=== PATIENT | female | born 1980 | race Caucasian/White ===

== ENCOUNTER 2019-02-01 19:42 | Observation (INO) | payer BC ==
[2019-02-01] MEDS ORDERED: Sodium Chloride 0.9% 10 ML Syringe FLUSH PRN (20:06)
[2019-02-01] MEDS ORDERED: Sodium Chloride 0.9% 1,000 ML IV ONE (20:06)
[2019-02-01] MEDS ORDERED: Sodium Chloride 0.9% 2.5 ML Syringe FLUSH PRN (20:06)
[2019-02-01] MEDS ORDERED: Aspirin 325 MG Tab PO ONE (20:06)
--- NOTE | 2019-02-01 20:10 | EDM.PDOC ---
ED HPI GENERAL MEDICAL PROBLEM - General Chief Complaint: Cardiovascular Problem Stated Complaint: LOST VISION Time Seen by Provider: 02/01/19 19:55 - History of Present Illness INITIAL COMMENTS - FREE TEXT/NARRATIVE: HISTORY AND PHYSICAL: History of present illness: The patient is a 38-year-old female with a history of a pulmonary embolism in 2004 when she was and also had a PICC line in place, which they thought was the trigger for the PE, and who follows with Dr. Abebe in our clinic for checkups and has no other significant cardiac or logic pulmonary history other than migraine headaches and presents with an episode of visual changes mid thoracic pain and palpitations. The patient says that she had a normal day yesterday and today with the exception that she did take a dose of her Vyvanse, which she doesn't take every day, and drink her usual one cup of tea but did add an extra cup of iced coffee. Patient said she had no chest pain shortness of breath abdominal pain vomiting fevers or chills earlier and then was driving her car this evening when she says that she got "kaleidoscope peripheral vision", which she defines as seeing prisms and sections of light bilaterally in a lytton-like fashion around her vision with central clearing that started while she was in the car. She had no headache nausea vomiting lightheadedness or palpitations at that time. She then said that after a minute or 2 she completely lost vision in her left eye which lasted about 20-30 seconds and then the kaleidoscope vision came back and lasted for 7 minutes and now all visual changes have resolved. She says that when the kaleidoscope vision came back the second time she had a sudden sharp pain between her shoulder blades in the midline which has persisted and is not radiating to her chest. She had no anterior chest pain no shortness of breath no dizziness or lightheadedness no headache no eye pain and no leg or arm weakness numbness or tingling with these events. She currently says that her vision has completely resolved and she just feels like her heart is going faster and is skipping beats. She said that after the mid back pain started the palpitations and rapid heart rate started and has persisted but is improved. The patient says that her typical aura from migraine is that she feels very tired she'll lay down to take a nap and then when she wakes up she has a migraine headache. These visual changes are not typical of her migraines. She currently does not have a headache. The patient says she has been eating and drinking normally she has no leg pain or swelling and had a partial hysterectomy and denies . Currently in the ED her only complaint is of the mid thoracic pain and the palpitations. On the monitor her heart rate is 106 and she is having PVCs intermittently. She has no history of thyroid issues. The patient says that the pain between her shoulder blades does seem to be a little bit more on the left side but does not come around to her left chest wall and she describes it as a deep stabbing pain that is not made worse with movements or deep breaths. She rates it as a 6/10. When I ask her how she would treat this at home she said she would just rest put a heating pad on it and maybe take some over-the- counter meds. Please note that the patient says that all of these symptoms are not typical of a migraine aura or equivalent and the patient does not currently have a headache or eye pain. Review of systems: As per history of present illness and below otherwise all systems reviewed and negative. Past medical history: As per history of present illness and as reviewed below otherwise noncontributory. Surgical history: As per history of present illness and as reviewed below otherwise noncontributory. Social history: No reported history of drug or alcohol abuse. Family history: As per history of present illness and as reviewed below otherwise noncontributory. Physical exam: General: Well-developed well-nourished female who is nontoxic and speaking clearly and easily in the ED. She ambulated in without assistance. Vital signs are noted by me as is the monitor findings as documented above as well as the blood pressure HEENT: Atraumatic, normocephalic, pupils reactive, EOMs are intact and during my visual evaluation she has no kaleidoscope vision or change in vision and her vision is grossly intact on my evaluation as is her peripheral vision, negative for conjunctival pallor or scleral icterus, mucous membranes moist, throat clear , neck supple, nontender, trachea midline. No thyromegaly cervical adenopathy or nuchal rigidity Lungs: Clear to auscultation, breath sounds equal bilaterally, chest nontender. Heart: S1S2, slightly tachycardic rate with occasional ectopic beats appreciated but no murmurs negative for clicks, rubs, or JVD. Abdomen: Soft, nondistended, nontender. Negative for masses or hepatosplenomegaly. Negative for costovertebral tenderness. Pelvis: Stable nontender. Genitourinary: Deferred. Rectal: Deferred. Extremities: Atraumatic, negative for cords or calf pain. Neurovascular unremarkable. No pedal edema or leg asymmetry Neuro: Awake, alert, oriented. Cranial nerves II through XII unremarkable. Cerebellum unremarkable. Motor and sensory unremarkable throughout. Exam nonfocal. Back: There are no midline step-offs tenderness defects of the thoracic or lumbar spine and on palpation of the soft tissues and musculature of the thoracic region and shoulder girdle I cannot elicit the tenderness nor other any soft tissue palpable abnormalities Diagnostics: EKG CT scan of the head chest x-ray CBC CMP INR TSH troponin UA with reflex ESR Therapeutics: IV O2 monitor aspirin Toradol IV fluids 2018: Case was discussed with our herbicide sprayer Dr. Estevez. I explained to him the patient's events prior to coming to the ED and the complete resolution of those symptoms. He says that he does not seem to indicate a primary ophthalmologic cause and there is no need to emergently evaluate her from a vision standpoint or an ophthalmologic standpoint and that I should pursue cardiac and neuro causes of this. With some IV fluids a heart rate has now normalized to the 80s and blood pressure has also improved. 2108: All testing results were discussed with the patient and at bedside as well as the neurologist on-call at [facility] in [place], Dr. Mallory. He does not feel that this patient needs to be transferred nor be seen emergently by a neurologist but that she does need an MRI/MRA of the head and neck as well as an echocardiogram and an aspirin. He says that he is available to assist the hospitalist here with any issues or complications and that they can transfer tomorrow if anything changes or evolves. When I went in to discuss these results with the patient she seemed very tearful and her heart rate goes up when she starts acting anxious and upset. The patient says that she has been having a lot of "weird things happen to her" and the doctors are not believing her. I did not probe into this as we have a care plan involved and in place. She is comfortable with staying here for this workup and she was offered transferred to [facility] which she declines. Transfer to [facility] in [place] is not capable today because they are full to capacity. The neurologist there does not feel that she mandates transfer and I have expressed that to the patient and at bedside and they're comfortable with staying here. 2136: The case was discussed with Dr. Parker our hospitalist who accepts the patient and is aware of the workup that the neurologist has recommended. He accepts her to a telemetry observation admission Impression: Episode of visual changes resolved, palpitations and PVCs, rule out TIA Definitive disposition and diagnosis as appropriate pending reevaluation and review of above. Chest Pain Score (Numeric/FACES): 4 - Related Data Allergies Allergy/AdvReac Type Severity Reaction Status Date / Time animal dander Allergy Shortness Verified 02/01/19 19:53 of Breath promethazine Allergy Anxiety Verified 02/01/19 19:53 triamcinolone [From Kenalog] Allergy Other Verified 02/01/19 19:53 dust Allergy Shortness Uncoded 02/01/19 19:53 of Breath Home Meds: Home Meds EPINEPHrine [Epipen] 1 injection SUBCUT ASDIRECTED PRN 09/20/18 [History] Lisdexamfetamine Dimesylate [Vyvanse] 40 mg PO ASDIRECTED 02/01/19 [History] Past Medical History HEENT History: Reports: None Respiratory History: Reports: PE Other Respiratory History: PE during in 2004 Gastrointestinal History: Reports: Celiac Disease Genitourinary History: Reports: None 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 History: Reports: Endometriosis, Polycystic Ovaries, Musculoskeletal History: Reports: Neck Pain, Chronic Neurological History: Reports: Migraines Psychiatric History: Reports: ADHD Hematologic History: Reports: None Dermatologic History: Reports: Eczema - Infectious Disease History Infectious Disease History: Reports: Chicken Pox - Past Surgical History Head Surgeries/Procedures: Reports: None HEENT Surgical History: Reports: Adenoidectomy, Tonsillectomy GI Surgical History: Reports: Appendectomy Female Surgical History: Reports: Hysterectomy, Tubal Ligation Other Female Surgeries/Procedures: laparoscopy for endometriosis in 1999 Social & Family History - Family History Family Medical History: Noncontributory - Tobacco Use Smoking Status *Q: Never Smoker - Caffeine Use Caffeine Use: Reports: None - Recreational Drug Use Recreational Drug Use: No ED ROS GENERAL - Review of Systems Review Of Systems: ROS reveals no pertinent complaints other than HPI. ED EXAM, GENERAL - Physical Exam Exam: See Below (See dictation) Course - Vital Signs Last Recorded V/S: Last Vital Signs Temp 36.7 C 02/01/19 19:49 Pulse 88 02/01/19 20:59 Resp 18 02/01/19 20:59 BP 150/96 H 02/01/19 20:59 Pulse Ox 99 02/01/19 20:59 - Orders/Labs/Meds Orders: Active Orders 24 hr Category Date Time Status Cardiac Monitoring [RC] . DIRECTED Care 02/01/19 20:05 Active Communication Order [RC] STAT Care 02/01/19 20:06 Active Oxygen Therapy, ED [RC] ASDIRECTED Care 02/01/19 20:05 Active Pulse Oximetry [RC] ASDIRECTED Care 02/01/19 20:05 Active Sodium Chloride 0.9% [Saline Flush] Med 02/01/19 20:06 Active 10 ml FLUSH ASDIRECTED PRN Sodium Chloride 0.9% [Saline Flush] Med 02/01/19 20:06 Active 2.5 ml FLUSH ASDIRECTED PRN Saline Lock Insert [OM.PC] Stat Oth 02/01/19 20:05 Ordered Medication Orders Sodium Chloride (Saline Flush) 10 ml FLUSH ASDIRECTED PRN PRN Reason: Keep Vein Open Sodium Chloride (Saline Flush) 2.5 ml FLUSH ASDIRECTED PRN PRN Reason: Keep Vein Open Labs: Laboratory Tests 02/01/19 02/01/19 02/01/19 Range/Units 20:15 20:15 20:15 WBC 9.97 (4.0-11.0) K/uL RBC 5.13 (4.30-5.90) M/uL Hgb 15.0 (12.0-16.0) g/dL Hct 42.2 (36.0-46.0) % MCV 82.3 (80.0-98.0) fL MCH 29.2 (27.0-32.0) pg MCHC 35.5 (31.0-37.0) g/dL RDW Std Deviation 39.6 (28.0-62.0) fl RDW Coeff of Gifty 13 (11.0-15.0) % Plt Count 247 (150-400) K/uL MPV 10.40 (7.40-12.00) fL Neut % (Auto) 58.6 (48.0-80.0) % Lymph % (Auto) 32.2 (16.0-40.0) % [place] % (Auto) 6.4 (0.0-15.0) % Eos % (Auto) 2.6 (0.0-7.0) % Baso % (Auto) 0.2 (0.0-1.5) % Neut # (Auto) 5.8 H (1.4-5.7) K/uL Lymph # (Auto) 3.2 H (0.6-2.4) K/uL [place] # (Auto) 0.6 (0.0-0.8) K/uL Eos # (Auto) 0.3 (0.0-0.7) K/uL Baso # (Auto) 0.0 (0.0-0.1) K/uL Nucleated RBC % 0.0 /100WBC Nucleated RBCs # 0 K/uL ESR (0-19) mm/hr INR 0.98 D-Dimer, Quantitative 0.38 (0.0-0.50) mg/L FEU Sodium 140 (136-145) mmol/L Potassium 3.8 (3.5-5.1) mmol/L Chloride 105 (98-107) mmol/L Carbon Dioxide 22.6 (21.0-32.0) mmol/L BUN 12 (7.0-18.0) mg/dL Creatinine 1.1 H (0.6-1.0) mg/dL Est Cr Clr Drug Dosing 66.11 mL/min Estimated GFR (MDRD) 55.0 ml/min Glucose 100 (74-106) mg/dL Calcium 9.2 (8.5-10.1) mg/dL Total Bilirubin 0.9 (0.2-1.0) mg/dL AST 22 (15-37) IU/L ALT 19 (14-63) IU/L Alkaline Phosphatase 84 (46-116) U/L Troponin I < 0.050 (0.000-0.056) ng/mL C-Reactive Protein 0.80 (0.00-0.90) mg/dL Total Protein 8.2 (6.4-8.2) g/dL Albumin 4.1 (3.4-5.0) g/dL Globulin 4.1 H (2.6-4.0) g/dL Albumin/Globulin Ratio 1.0 (0.9-1.6) TSH 3rd Generation 4.82 H (0.36-3.74) uIU/mL Urine Color Urine Appearance Urine pH (5.0-8.0) Ur Specific [place] (1.001-1.035) Urine Protein (NEGATIVE) mg/dL Urine Glucose (UA) (NEGATIVE) mg/dL Urine Ketones (NEGATIVE) mg/dL Urine Occult Blood (NEGATIVE) Urine Nitrite (NEGATIVE) Urine Bilirubin (NEGATIVE) Urine Urobilinogen (<2.0) EU/dL Ur Leukocyte Esterase (NEGATIVE) Urine RBC (0-2/HPF) Urine WBC (0-5/HPF) Ur Squamous Epith Cells Urine Bacteria (NEGATIVE) Urine Mucus (NONE-MOD) 02/01/19 02/01/19 Range/Units 20:15 20:30 WBC (4.0-11.0) K/uL RBC (4.30-5.90) M/uL Hgb (12.0-16.0) g/dL Hct (36.0-46.0) % MCV (80.0-98.0) fL MCH (27.0-32.0) pg MCHC (31.0-37.0) g/dL RDW Std Deviation (28.0-62.0) fl RDW Coeff of Gifty (11.0-15.0) % Plt Count (150-400) K/uL MPV (7.40-12.00) fL Neut % (Auto) (48.0-80.0) % Lymph % (Auto) (16.0-40.0) % [place] % (Auto) (0.0-15.0) % Eos % (Auto) (0.0-7.0) % Baso % (Auto) (0.0-1.5) % Neut # (Auto) (1.4-5.7) K/uL Lymph # (Auto) (0.6-2.4) K/uL [place] # (Auto) (0.0-0.8) K/uL Eos # (Auto) (0.0-0.7) K/uL Baso # (Auto) (0.0-0.1) K/uL Nucleated RBC % /100WBC Nucleated RBCs # K/uL ESR 13 (0-19) mm/hr INR D-Dimer, Quantitative (0.0-0.50) mg/L FEU Sodium (136-145) mmol/L Potassium (3.5-5.1) mmol/L Chloride (98-107) mmol/L Carbon Dioxide (21.0-32.0) mmol/L BUN (7.0-18.0) mg/dL Creatinine (0.6-1.0) mg/dL Est Cr Clr Drug Dosing mL/min Estimated GFR (MDRD) ml/min Glucose (74-106) mg/dL Calcium (8.5-10.1) mg/dL Total Bilirubin (0.2-1.0) mg/dL AST (15-37) IU/L ALT (14-63) IU/L Alkaline Phosphatase (46-116) U/L Troponin I (0.000-0.056) ng/mL C-Reactive Protein (0.00-0.90) mg/dL Total Protein (6.4-8.2) g/dL Albumin (3.4-5.0) g/dL Globulin (2.6-4.0) g/dL Albumin/Globulin Ratio (0.9-1.6) TSH 3rd Generation (0.36-3.74) uIU/mL Urine Color YELLOW Urine Appearance CLEAR Urine pH 6.0 (5.0-8.0) Ur Specific [place] <= 1.005 (1.001-1.035) Urine Protein NEGATIVE (NEGATIVE) mg/dL Urine Glucose (UA) NEGATIVE (NEGATIVE) mg/dL Urine Ketones NEGATIVE (NEGATIVE) mg/dL Urine Occult Blood TRACE-INTACT H (NEGATIVE) Urine Nitrite NEGATIVE (NEGATIVE) Urine Bilirubin NEGATIVE (NEGATIVE) Urine Urobilinogen 0.2 (<2.0) EU/dL Ur Leukocyte Esterase NEGATIVE (NEGATIVE) Urine RBC NONE SEEN (0-2/HPF) Urine WBC 0-1 (0-5/HPF) Ur Squamous Epith Cells FEW Urine Bacteria 1+ H (NEGATIVE) Urine Mucus LIGHT (NONE-MOD) Meds: Medications Generic Name Dose Route Start Last Admin Trade Name Freq PRN Reason Stop Dose Admin Sodium Chloride 10 ml 02/01/19 20:06 Saline Flush FLUSH ASDIRECTED PRN Keep Vein Open Sodium Chloride 2.5 ml 02/01/19 20:06 Saline Flush FLUSH ASDIRECTED PRN Keep Vein Open Discontinued Medications Generic Name Dose Route Start Last Admin Trade Name Antwanq PRN Reason Stop Dose Admin Aspirin 325 mg 02/01/19 20:06 02/01/19 20:30 Aspirin PO 02/01/19 20:07 325 mg ONETIME ONE Administration Sodium Chloride 1,000 mls @ 999 mls/hr 02/01/19 20:06 02/01/19 20:30 Normal Saline IV 02/01/19 21:06 999 mls/hr STAT ONE Administration Ketorolac Tromethamine 30 mg 02/01/19 20:16 02/01/19 20:30 Toradol IVPUSH 02/01/19 20:17 30 mg ONETIME ONE Administration Departure - Departure Time of Disposition: 21:49 Disposition: Refer to Observation Reason for Transfer *Q: Primary PCI Indicated Condition: Good Clinical Impression: Palpitations, Visual changes, TIA (transient ischemic attack) Referrals: PCP,None [Primary Care Provider] - Forms: ED Department Discharge - My Orders Last 24 Hours: My Active Orders 02/01/19 20:05 Cardiac Monitoring [RC] . DIRECTED Oxygen Therapy, ED [RC] ASDIRECTED Pulse Oximetry [RC] ASDIRECTED Saline Lock Insert [OM.PC] Stat 02/01/19 20:06 Communication Order [RC] STAT Sodium Chloride 0.9% [Saline Flush] 10 ml FLUSH ASDIRECTED PRN Sodium Chloride 0.9% [Saline Flush] 2.5 ml FLUSH ASDIRECTED PRN - Assessment/Plan Last 24 Hours: My Active Orders 02/01/19 20:05 Cardiac Monitoring [RC] . DIRECTED Oxygen Therapy, ED [RC] ASDIRECTED Pulse Oximetry [RC] ASDIRECTED Saline Lock Insert [OM.PC] Stat 02/01/19 20:06 Communication Order [RC] STAT Sodium Chloride 0.9% [Saline Flush] 10 ml FLUSH ASDIRECTED PRN Sodium Chloride 0.9% [Saline Flush] 2.5 ml FLUSH ASDIRECTED PRN
[2019-02-01] MEDS ORDERED: Ketorolac 30 MG/ML SDV IVPUSH ONE (20:16)
--- NOTE | 2019-02-01 20:30 | CR ---
INDICATION: Chest pain, blurry vision. Shortness of breath. TECHNIQUE: Chest radiograph 1 view COMPARISON: 09/23/2018. FINDINGS: Cardiovascular and mediastinum: The heart silhouette is normal in size and morphology. The mediastinum is normal in appearance. Lungs and pleural spaces: Both lungs are unremarkable in appearance. No sign of pleural effusion seen. No pneumothorax is identified. Bones and soft tissues: No significant findings. IMPRESSION: 1. No acute cardiopulmonary disease is seen. Dictated by Rashi Lyman MD @ 02/01/2019 8:29:10 PM Dictated by: Rashi Lyman MD @ 02/01/2019 20:29:16 (Electronically Signed)
--- NOTE | 2019-02-01 20:43 | CT ---
INDICATION: Pain, temporary loss of vision. TECHNIQUE: CT head without contrast. COMPARISON: None. FINDINGS: CSF spaces: Within normal limits for age. Brain parenchyma: The thayer-white differentiation is normal. No sign of mass, hemorrhage, or midline shift. Skull base and calvarium: The visualized paranasal sinuses and mastoid air cells demonstrate no acute or significant findings. The visualized orbits are grossly unremarkable. No skull fractures. IMPRESSION: Unremarkable noncontrast head CT. Please note that all CT scans at this facility use dose modulation, iterative reconstruction, and/or weight-based dosing when appropriate to reduce radiation dose to as low as reasonably achievable. Dictated by Toño Orozco MD @ Feb 01 2019 8:37PM Signed by Dr. Toño Orozco @ Feb 01 2019 8:41PM
[2019-02-01 20:53] LABS: CHLORIDE,CL 105 mmol/L (98-107); SODIUM,NA 140 mmol/L (136-145)
[2019-02-01] MEDS ORDERED: Acetaminophen 325 MG Tab PO PRN (23:08)
[2019-02-01] MEDS ORDERED: oxyCODONE 5 MG Tab PO PRN (23:09)
[2019-02-02 05:55] LABS: CHLORIDE,CL 108 mmol/L (98-107); SODIUM,NA 141 mmol/L (136-145)
--- NOTE | 2019-02-02 06:48 | PCM.HP ---
H&P History of Present Illness - General Date of Service: 02/02/19 Admit Problem/Dx: Admission Diagnosis/Problem Admission Diagnosis/Problem TIA, Transient ischemic attack Source of Information: Patient History Limitations: Reports: No Limitations - History of Present Illness Initial Comments - Free Text/Narative: The patient is an otherwise healthy 38-year-old lady who was admitted to the emergency department secondary to concern over visual issues. The patient reported that she was having problems with her eyes in which had presented as kind of a "kaleidoscope" type of shimmering triangles in her peripheral vision. The patient also had some blurring of her central vision and at one point completely lost the vision in her left eye which lasted approximately 20-30 seconds. The patient also says that she has been having increasing migraine headaches that seem to occur on a regular basis. She is also had 6 months worth of pain between her shoulder blades along with some numb areas to include her perioral region as well as right lateral thigh. The patient also had concerns with palpitations and midthoracic back pain. The patient has been taking Vyvanse only for ADHD. The emergency room physician had discussed the case with neurologist at [place] who had recommended 2-D echocardiogram for cardiac issues as well as MRI/MRA of the brain to better characterize the parenchyma. Other than the decreased feeling around her mouth and her right lateral thigh all of her symptoms have resolved. Her vision is improved to normal. The patient did not have any associated symptoms such as weakness although she had complained of some dizziness as well. Onset of Symptoms: Reports: Sudden Duration of Symptoms: Reports: Hour(s): Location: Reports: Generalized. Denies: Radiates to Quality: Reports: Ache, Dull Improves with: Reports: Rest Worsens with: Reports: None Associated Symptoms: Reports: No Other Symptoms Chest Pain Score (Numeric/FACES): 2 - Related Data Allergies/Adverse Reactions: Allergies Allergy/AdvReac Type Severity Reaction Status Date / Time animal dander Allergy Shortness Verified 02/01/19 19:53 of Breath promethazine Allergy Anxiety Verified 02/01/19 19:53 triamcinolone [From Kenalog] Allergy Other Verified 02/01/19 19:53 dust Allergy Shortness Uncoded 02/01/19 19:53 of Breath Home Medications: Home Meds EPINEPHrine [Epipen] 1 injection SUBCUT ASDIRECTED PRN 09/20/18 [History] Lisdexamfetamine Dimesylate [Vyvanse] 40 mg PO ASDIRECTED 02/01/19 [History] Past Medical History HEENT History: Reports: None Respiratory History: Reports: PE Other Respiratory History: PE during in 2004 Gastrointestinal History: Reports: Celiac Disease Genitourinary History: Reports: None [employer] History: Reports: Endometriosis, Polycystic Ovaries, Musculoskeletal History: Reports: Neck Pain, Chronic Neurological History: Reports: Migraines Psychiatric History: Reports: ADHD Endocrine/Metabolic History: Reports: None Hematologic History: Reports: None Immunologic History: Reports: None Dermatologic History: Reports: Eczema - Infectious Disease History Infectious Disease History: Reports: Chicken Pox - Past Surgical History Head Surgeries/Procedures: Reports: None HEENT Surgical History: Reports: Adenoidectomy, Tonsillectomy GI Surgical History: Reports: Appendectomy Female Surgical History: Reports: Hysterectomy, Tubal Ligation Other Female Surgeries/Procedures: laparoscopy for endometriosis in 1999 Social & Family History - Family History Family Medical History: Noncontributory - Tobacco Use Smoking Status *Q: Never Smoker Second Hand Smoke Exposure: No - Caffeine Use Caffeine Use: Reports: Other Caffeine Use Comment: occasionally - Recreational Drug Use Recreational Drug Use: No - Living Situation & Occupation Living situation: Reports: , with Spouse Occupation: Employed H&P Review of Systems - Review of Systems: Review Of Systems: See Below General: Reports: Fatigue HEENT: Denies: Eye Pain, Hearing Changes, Rhinitis, Sinus Congestion Pulmonary: Reports: Pleuritic Chest Pain Cardiovascular: Reports: No Symptoms Gastrointestinal: Reports: No Symptoms Genitourinary: Reports: No Symptoms Musculoskeletal: Reports: No Symptoms Skin: Reports: No Symptoms Psychiatric: Reports: No Symptoms Neurological: Reports: Dizziness, Paresthesia Hematologic/Lymphatic: Reports: No Symptoms Immunologic: Reports: No Symptoms Exam - Exam Exam: See Below - Vital Signs Vital Signs: Last Vital Signs Temp 36.6 C 02/02/19 04:00 Pulse 62 02/02/19 04:00 Resp 16 02/02/19 04:00 BP 130/77 02/02/19 04:00 Pulse Ox 96 02/02/19 04:00 Weight: 87.997 kg - Exam Quality Assessment: No: Supplemental Oxygen General: Alert, Oriented, Cooperative HEENT: Conjunctiva Clear, EACs Clear, EOMI, Hearing Intact, Mucosa Moist & [place] , Nares Patent, PERRLA Neck: Supple, Trachea Midline. No: JVD Lungs: Clear to Auscultation, Normal Respiratory Effort Cardiovascular: Regular Rate, Regular Rhythm GI/Abdominal Exam: Normal Bowel Sounds, Soft, Non-Tender, No Distention (Female) Exam: Deferred Rectal (Female) Exam: Deferred Back Exam: Normal Inspection, Full Range of Motion Extremities: Normal Inspection, Normal Range of Motion, No Pedal Edema Skin: Warm, Dry, Intact Neurological: Reflexes Equal Bilateral, Strength Equal Bilateral, Normal Gait, Normal Speech Neuro Extensive - Mental Status: Alert, Oriented x3, Memory Intact Neuro Extensive - Motor, Sensory, Reflexes: CN II-XII Intact Psychiatric: Alert, Normal Affect, Normal Mood - Patient Data Lab Results Last 24 hrs: Laboratory Results - last 24 hr 02/01/19 02/01/19 02/01/19 Range/Units 20:15 20:15 20:15 WBC 9.97 (4.0-11.0) K/uL RBC 5.13 (4.30-5.90) M/uL Hgb 15.0 (12.0-16.0) g/dL Hct 42.2 (36.0-46.0) % MCV 82.3 (80.0-98.0) fL MCH 29.2 (27.0-32.0) pg MCHC 35.5 (31.0-37.0) g/dL RDW Std Deviation 39.6 (28.0-62.0) fl RDW Coeff of Gifty 13 (11.0-15.0) % Plt Count 247 (150-400) K/uL MPV 10.40 (7.40-12.00) fL Neut % (Auto) 58.6 (48.0-80.0) % Lymph % (Auto) 32.2 (16.0-40.0) % [place] % (Auto) 6.4 (0.0-15.0) % Eos % (Auto) 2.6 (0.0-7.0) % Baso % (Auto) 0.2 (0.0-1.5) % Neut # (Auto) 5.8 H (1.4-5.7) K/uL Lymph # (Auto) 3.2 H (0.6-2.4) K/uL [place] # (Auto) 0.6 (0.0-0.8) K/uL Eos # (Auto) 0.3 (0.0-0.7) K/uL Baso # (Auto) 0.0 (0.0-0.1) K/uL Nucleated RBC % 0.0 /100WBC Nucleated RBCs # 0 K/uL ESR (0-19) mm/hr INR 0.98 D-Dimer, Quantitative 0.38 (0.0-0.50) mg/L FEU Sodium 140 (136-145) mmol/L Potassium 3.8 (3.5-5.1) mmol/L Chloride 105 (98-107) mmol/L Carbon Dioxide 22.6 (21.0-32.0) mmol/L BUN 12 (7.0-18.0) mg/dL Creatinine 1.1 H (0.6-1.0) mg/dL Est Cr Clr Drug Dosing 66.11 mL/min Estimated GFR (MDRD) 55.0 ml/min Glucose 100 (74-106) mg/dL Calcium 9.2 (8.5-10.1) mg/dL Magnesium (1.8-2.4) mg/dL Total Bilirubin 0.9 (0.2-1.0) mg/dL AST 22 (15-37) IU/L ALT 19 (14-63) IU/L Alkaline Phosphatase 84 (46-116) U/L Troponin I < 0.050 (0.000-0.056) ng/mL C-Reactive Protein 0.80 (0.00-0.90) mg/dL Total Protein 8.2 (6.4-8.2) g/dL Albumin 4.1 (3.4-5.0) g/dL Globulin 4.1 H (2.6-4.0) g/dL Albumin/Globulin Ratio 1.0 (0.9-1.6) TSH 3rd Generation 4.82 H (0.36-3.74) uIU/mL Urine Color Urine Appearance Urine pH (5.0-8.0) Ur Specific [place] (1.001-1.035) Urine Protein (NEGATIVE) mg/dL Urine Glucose (UA) (NEGATIVE) mg/dL Urine Ketones (NEGATIVE) mg/dL Urine Occult Blood (NEGATIVE) Urine Nitrite (NEGATIVE) Urine Bilirubin (NEGATIVE) Urine Urobilinogen (<2.0) EU/dL Ur Leukocyte Esterase (NEGATIVE) Urine RBC (0-2/HPF) Urine WBC (0-5/HPF) Ur Squamous Epith Cells Urine Bacteria (NEGATIVE) Urine Mucus (NONE-MOD) 02/01/19 02/01/19 02/02/19 Range/Units 20:15 20:30 05:06 WBC 8.07 (4.0-11.0) K/uL RBC 4.51 (4.30-5.90) M/uL Hgb 13.0 (12.0-16.0) g/dL Hct 37.6 (36.0-46.0) % MCV 83.4 (80.0-98.0) fL MCH 28.8 (27.0-32.0) pg MCHC 34.6 (31.0-37.0) g/dL RDW Std Deviation 40.7 (28.0-62.0) fl RDW Coeff of Gifty 13 (11.0-15.0) % Plt Count 227 (150-400) K/uL MPV 9.90 (7.40-12.00) fL Neut % (Auto) 51.3 (48.0-80.0) % Lymph % (Auto) 36.4 (16.0-40.0) % [place] % (Auto) 6.4 (0.0-15.0) % Eos % (Auto) 5.7 (0.0-7.0) % Baso % (Auto) 0.2 (0.0-1.5) % Neut # (Auto) 4.1 (1.4-5.7) K/uL Lymph # (Auto) 2.9 H (0.6-2.4) K/uL [place] # (Auto) 0.5 (0.0-0.8) K/uL Eos # (Auto) 0.5 (0.0-0.7) K/uL Baso # (Auto) 0.0 (0.0-0.1) K/uL Nucleated RBC % 0.0 /100WBC Nucleated RBCs # 0 K/uL ESR 13 (0-19) mm/hr INR D-Dimer, Quantitative (0.0-0.50) mg/L FEU Sodium (136-145) mmol/L Potassium (3.5-5.1) mmol/L Chloride (98-107) mmol/L Carbon Dioxide (21.0-32.0) mmol/L BUN (7.0-18.0) mg/dL Creatinine (0.6-1.0) mg/dL Est Cr Clr Drug Dosing mL/min Estimated GFR (MDRD) ml/min Glucose (74-106) mg/dL Calcium (8.5-10.1) mg/dL Magnesium (1.8-2.4) mg/dL Total Bilirubin (0.2-1.0) mg/dL AST (15-37) IU/L ALT (14-63) IU/L Alkaline Phosphatase (46-116) U/L Troponin I (0.000-0.056) ng/mL C-Reactive Protein (0.00-0.90) mg/dL Total Protein (6.4-8.2) g/dL Albumin (3.4-5.0) g/dL Globulin (2.6-4.0) g/dL Albumin/Globulin Ratio (0.9-1.6) TSH 3rd Generation (0.36-3.74) uIU/mL Urine Color YELLOW Urine Appearance CLEAR Urine pH 6.0 (5.0-8.0) Ur Specific [place] <= 1.005 (1.001-1.035) Urine Protein NEGATIVE (NEGATIVE) mg/dL Urine Glucose (UA) NEGATIVE (NEGATIVE) mg/dL Urine Ketones NEGATIVE (NEGATIVE) mg/dL Urine Occult Blood TRACE-INTACT H (NEGATIVE) Urine Nitrite NEGATIVE (NEGATIVE) Urine Bilirubin NEGATIVE (NEGATIVE) Urine Urobilinogen 0.2 (<2.0) EU/dL Ur Leukocyte Esterase NEGATIVE (NEGATIVE) Urine RBC NONE SEEN (0-2/HPF) Urine WBC 0-1 (0-5/HPF) Ur Squamous Epith Cells FEW Urine Bacteria 1+ H (NEGATIVE) Urine Mucus LIGHT (NONE-MOD) 02/02/19 Range/Units 05:06 WBC (4.0-11.0) K/uL RBC (4.30-5.90) M/uL Hgb (12.0-16.0) g/dL Hct (36.0-46.0) % MCV (80.0-98.0) fL MCH (27.0-32.0) pg MCHC (31.0-37.0) g/dL RDW Std Deviation (28.0-62.0) fl RDW Coeff of Gifty (11.0-15.0) % Plt Count (150-400) K/uL MPV (7.40-12.00) fL Neut % (Auto) (48.0-80.0) % Lymph % (Auto) (16.0-40.0) % [place] % (Auto) (0.0-15.0) % Eos % (Auto) (0.0-7.0) % Baso % (Auto) (0.0-1.5) % Neut # (Auto) (1.4-5.7) K/uL Lymph # (Auto) (0.6-2.4) K/uL [place] # (Auto) (0.0-0.8) K/uL Eos # (Auto) (0.0-0.7) K/uL Baso # (Auto) (0.0-0.1) K/uL Nucleated RBC % /100WBC Nucleated RBCs # K/uL ESR (0-19) mm/hr INR D-Dimer, Quantitative (0.0-0.50) mg/L FEU Sodium 141 (136-145) mmol/L Potassium 3.6 (3.5-5.1) mmol/L Chloride 108 H (98-107) mmol/L Carbon Dioxide 22.7 (21.0-32.0) mmol/L BUN 10 (7.0-18.0) mg/dL Creatinine 1.0 (0.6-1.0) mg/dL Est Cr Clr Drug Dosing 72.72 mL/min Estimated GFR (MDRD) > 60.0 ml/min Glucose 90 (74-106) mg/dL Calcium 8.4 L (8.5-10.1) mg/dL Magnesium 2.2 (1.8-2.4) mg/dL Total Bilirubin (0.2-1.0) mg/dL AST (15-37) IU/L ALT (14-63) IU/L Alkaline Phosphatase (46-116) U/L Troponin I (0.000-0.056) ng/mL C-Reactive Protein (0.00-0.90) mg/dL Total Protein (6.4-8.2) g/dL Albumin (3.4-5.0) g/dL Globulin (2.6-4.0) g/dL Albumin/Globulin Ratio (0.9-1.6) TSH 3rd Generation (0.36-3.74) uIU/mL Urine Color Urine Appearance Urine pH (5.0-8.0) Ur Specific [place] (1.001-1.035) Urine Protein (NEGATIVE) mg/dL Urine Glucose (UA) (NEGATIVE) mg/dL Urine Ketones (NEGATIVE) mg/dL Urine Occult Blood (NEGATIVE) Urine Nitrite (NEGATIVE) Urine Bilirubin (NEGATIVE) Urine Urobilinogen (<2.0) EU/dL Ur Leukocyte Esterase (NEGATIVE) Urine RBC (0-2/HPF) Urine WBC (0-5/HPF) Ur Squamous Epith Cells Urine Bacteria (NEGATIVE) Urine Mucus (NONE-MOD) Result Diagrams: 02/02/19 05:06 02/02/19 05:06 - Problem List (1) Amaurosis fugax, both eyes SNOMED Code(s): 05699578 ICD Code: G45.3 - AMAUROSIS FUGAX Status: Acute Priority: High Current Visit: Yes (2) ADHD (attention deficit hyperactivity disorder) SNOMED Code(s): 605646687 ICD Code: F90.9 - ATTENTION-DEFICIT HYPERACTIVITY DISORDER, UNSPECIFIED TYPE Status: Chronic Priority: High Current Visit: Yes Qualifiers: Attention deficit-hyperactivity disorder type: predominantly inattentive Qualified Code(s): F90.0 - Attention-deficit hyperactivity disorder, predominantly inattentive type (3) Visual changes SNOMED Code(s): 410442929 ICD Code: H53.9 - UNSPECIFIED VISUAL DISTURBANCE Status: Acute Priority: High Current Visit: Yes (4) Pleuritic chest pain SNOMED Code(s): 8996055 ICD Code: R07.81 - PLEURODYNIA Status: Acute Priority: High Current Visit: Yes Problem List Initiated/Reviewed/Updated: Yes Orders Last 24hrs: Active Orders 24 hr Category Date Time Status Patient Status [ADT] Stat ADT 02/01/19 21:49 Active Communication Order [RC] STAT Care 02/01/19 20:06 Active Neuro Check [RC] BID Care 02/01/19 23:00 Active Oxygen Therapy, ED [RC] ASDIRECTED Care 02/01/19 20:05 Active Pulse Oximetry [RC] ASDIRECTED Care 02/01/19 20:05 Active Telemetry Monitoring [Cardiac Monitoring] [RC] Q8H Care 02/01/19 22:00 Active Regular Diet [DIET] Diet 02/02/19 Breakfast Active Brain w wo Cont [MR] Routine Exams 02/02/19 06:37 Ordered Echo 2D wo Cont [US] Routine Exams 02/02/19 07:00 Ordered MRA Head Without Contrast [Ang Head wo Cont] [MR] Exams 02/02/19 06:38 Ordered Routine Acetaminophen [Tylenol] Med 02/01/19 23:08 Active 650 mg PO Q6H PRN Sodium Chloride 0.9% [Saline Flush] Med 02/01/19 20:06 Active 10 ml FLUSH ASDIRECTED PRN Sodium Chloride 0.9% [Saline Flush] Med 02/01/19 20:06 Active 2.5 ml FLUSH ASDIRECTED PRN oxyCODONE Med 02/01/19 23:09 Active 5 mg PO Q4H PRN Saline Lock Insert [OM.PC] Stat Oth 02/01/19 20:05 Ordered Medication Orders Acetaminophen (Tylenol) 650 mg PO Q6H PRN PRN Reason: Mild Pain Oxycodone HCl (Oxycodone) 5 mg PO Q4H PRN PRN Reason: Moderate Pain Sodium Chloride (Saline Flush) 10 ml FLUSH ASDIRECTED PRN PRN Reason: Keep Vein Open Sodium Chloride (Saline Flush) 2.5 ml FLUSH ASDIRECTED PRN PRN Reason: Keep Vein Open Assessment/Plan Comment:: The patient is an otherwise healthy 38-year-old lady who was admitted late yesterday evening secondary to concerns for visual disturbance. Neurology and [place] had been consulted with regards to her symptomology and had recommended MRI/MRA of her brain along with a 2-D echocardiogram. The 2-D echocardiogram results are currently pending. The MRI/MRA obtained on day of discharge showed no acute intracranial findings a few small white matter FLAIR signal foci were identified which are considered to be nonspecific but may represent sequelae of previous migraines or early demyelination. She also had an unremarkable intracranial arterial circulation. The patient's symptoms had resolved. The patient's short hospital course has remained uneventful. Laboratory studies to include INR and d-dimer were unremarkable. Of note and likely incidental finding is that her TSH was very mildly elevated at 4.82. The patient has been tolerating her diet. She is recommended to continue with a heart healthy diet as tolerated. The patient is also to have activity as tolerated. She has been recommended to follow-up with the physician with regards to her 2-D echocardiogram as well as neurology. She has been hemodynamically stable and she is discharged from hospitalization with the recommendations listed above. This patient's history and physical will also serve as a discharge summary.
[2019-02-02] MEDS ORDERED: Lisdexamfetamine Dimesylate [Vyvanse] 40 MG PO SCH (07:00)
[2019-02-02] MEDS ORDERED: Gadobenate Dimeglumine 529 MG/ML 20 ML SDV IVPUSH STA (08:50)
--- NOTE | 2019-02-02 11:25 | MR ---
EXAMINATION: MRI of the brain with and without contrast, MRA head without contrast TECHNIQUE: Multiplanar and multisequence imaging of the brain without and following the administration of 13 mL of MultiHance. [id number] imaging obtained through the head with MIP reconstructions. HISTORY: TIA. FINDINGS: Cerebral hemispheres and the deep nuclei are without hemorrhage, mass, edema, enhancement or atrophy. There is no abnormal diffusion restriction. No extraaxial collections or hemorrhage. Ventricular system is of normal size and configuration without hydrocephalus. The brainstem and cerebellum are without hemorrhage, mass, edema, gliosis, enhancement or atrophy. Carotid basilar artery flow voids are intact. Trace fluid within the left mastoid air cells. No internal auditory canal or cerebellopontine angle masses or enhancement. The paranasal sinuses are clear. Globes, optic nerves, orbital apices, optic chiasm, optic tracts, and visual cortices are unremarkable. The pituitary and sella turcica are unremarkable. No meningeal enhancement. The craniocervical junction is unremarkable. No siderosis or evidence of vascular malformation. The calvarium is intact. MRA head: The distal internal carotid arteries are normal. The left vertebral artery is slightly dominant. The basilar system is normal. Anterior and posterior communicating arteries are normal. IMPRESSION: 1. No acute intracranial findings. 2. There are a few small white matter FLAIR signal foci identified, nonspecific, this could represent, however not limited to, early small vessel ischemic changes, sequela of previous migraines, or early demyelination. 3. Unremarkable intracranial arterial circulation.
== END 2019-02-02 13:45 | disposition home or self-care (01) ==
LOC: MW.ED 19:42 → MW.MS 21:49
PROVIDERS: ADMIT Internal Medicine; ATTEND Internal Medicine
DX: G45.3 Amaurosis fugax (principal); R07.81 Pleurodynia; I49.3 Ventricular premature depolarization; F90.0 Attention-deficit hyperactivity disorder, predominantly inattentive type; Z88.8 Allergy status to other drugs, medicaments and biological substances; Z86.711 Personal history of pulmonary embolism; Z91.09 Other allergy status, other than to drugs and biological substances; Z79.899 Other long term (current) drug therapy
CPT/HCPCS: 36415; 70450; 70450-26; 70544; 70544-26; 70553; 70553-26; 71045; 71045-26; 80048; 80053; 81001; 83735; 84443; 84484; 85025; 85379; 85610; 85652; 86140; 93005; 93306; 96361; 96374; 99284; 99285-25; A9270-GY; A9577; G0378; J1885; J7040

== ENCOUNTER 2020-08-29 22:07 | Emergency (ER) | payer BC ==
[2020-08-29] MEDS ORDERED: Ketorolac 15 MG/ML SDV IM ONE (22:44)
[2020-08-29] MEDS ORDERED: Methocarbamol 750 MG TAB PO STA (22:44)
--- NOTE | 2020-08-29 23:11 | CR ---
TECHNIQUE: Portable AP chest radiograph. INDICATION: Mid back pain. COMPARISON: 02/01/2019. FINDINGS: Lungs and pleural spaces clear. Normal cardiac and mediastinal contours. IMPRESSION: Negative chest radiograph. Dictated by Bryn Rowe MD @ 08/29/2020 11:11:08 PM Dictated by: Bryn Rowe MD @ 08/29/2020 23:11:12 (Electronically Signed)
[2020-08-29 23:49] LABS: CARBON DIOXIDE,CO2 23.6 mmol/L (21.0-32.0)
[2020-08-30] MEDS ORDERED: Potassium Chloride 10% 20 MEQ/15 ML Soln 15 ML UD Cup PO ONE (00:48)
[2020-08-30] MEDS ORDERED: Iopamidol 755 Mg/ML 100 ML Bottle IVPUSH STA (01:00)
--- NOTE | 2020-08-30 01:15 | CT ---
INDICATION: Elevated D-dimer, history of pulmonary embolus. TECHNIQUE: CT chest PE was acquired with 75 cc Isovue 370 intravenous contrast. COMPARISON: Chest CT 09/23/2018 FINDINGS: Heart and vasculature: Contrast opacification of the pulmonary arterial tree is adequate. No sign of pulmonary embolism. Thoracic aorta is normal in caliber. Trace pericardial fluid. Lungs and pleural: Trace bilateral pleural effusions. Bilateral ground-glass opacities of the upper lungs as well as a mosaic attenuation pattern of the lower lungs. Lymph nodes/mediastinum: No mediastinal, hilar, or axillary adenopathy. Chest wall: No masses. Upper abdomen: Normal. Bones: Unremarkable for age. IMPRESSION: 1. No evidence of pulmonary embolus. 2. Trace bilateral pleural effusions. 3. Ground-glass opacities, greatest at the left upper lobe suspicious for a viral pneumonia. Please note that all CT scans at this facility use dose modulation, iterative reconstruction, and/or weight-based dosing when appropriate to reduce radiation dose to as low as reasonably achievable. Dictated by Toño Orozco MD @ Aug 30 2020 1:02AM Signed by Dr. Toño Orozco @ Aug 30 2020 1:13AM
--- NOTE | 2020-08-30 01:28 | EDM.PDOC ---
ED HPI GENERAL MEDICAL PROBLEM - General Chief Complaint: General Stated Complaint: SICK Time Seen by Provider: 08/29/20 22:26 - History of Present Illness INITIAL COMMENTS - FREE TEXT/NARRATIVE: CHIEF COMPLAINT(S): Back pain HISTORY OF PRESENT ILLNESS: This is a 39-year-old woman with a past medical history of ADHD, muscle spasm, pleurisy, and prior history of provoked PE after who comes to the emergency department with a chief complaint of back pain. The patient states that for approximately 2 to 3 days now she has been experiencing back pain that starts in between her shoulders and radiates under her ribs anteriorly. She describes the pain as constant and 8 out of 10 and describes the pain as spasms. She states that the pain is worse tonight and it is worth with sitting back on her back. She denies any relieving symptoms and has not yet tried anything for the pain. She denies any fevers, chills, diaphoresis, nausea or vomiting. She denies any night sweats, weight loss, or known contact with Covid. She states that she does not have a history of nephrolithiasis and feels similar to the pleurisy she had in the past. She denies any dysuria, hematuria, vaginal bleeding or vaginal discharge. She denies any other symptoms. REVIEW OF SYSTEMS: Constitutional: Denies fever, chills. Eyes: Denies eye pain Ears, Nose, Mouth, & Throat: Denies earache Cardiovascular: Positive for chest wall pain. Denies any chest pain Respiratory: Denies shortness of breath Gastrointestinal: Denies Nausea, vomiting, diarrhea, hematochezia. Genitourinary: Denies hematuria MSK: Positive for back pain Neurological: Denies blurred vision numbness, tingling, weakness Psychiatric: Denies depression PAST MEDICAL HISTORY: Patient reports a past medical history of celiac disease, PCOS, migraines, hemangioma, thyroid nodules, history of pleurisy, pleural effusions SURGICAL HISTORY: As per history of present illness and as reviewed below otherwise noncontributory. LMP: Has had a partial hysterectomy SOCIAL HISTORY: As per history of present illness and as reviewed below otherwise noncontributory. FAMILY HISTORY: As per history of present illness and as reviewed below otherwise noncontributory. EXAMINATION OF ORGAN SYSTEMS/BODY AREAS: Constitutional: Blood pressure was 148/97, heart rate 118, respiratory rate 18 with an oxygen saturation 95% on room air. Temperature 36.9 General: Overall well-appearing woman who is in no acute distress Psychiatric: Appropriate mood and affect. Eyes: No scleral icterus or conjunctival erythema ENMT: Moist mucous membranes. No pharyngeal erythema Cardiovascular: Regular, rate, and rythym. No gallops, murmurs, or rubs. Bilateral upper extremity pulses symmetric and intact. No peripheral edema. No JVD. There is pain along the ribs anterior and posteriorly along the inferior ribs without any overlying skin changes. Respiratory: Lungs clear to auscultation bilaterally. No wheezes, rales, or rhonchi. Speaking in full sentences. Gastrointestinal: Soft, non-tender, non-distended. Normoactive bowel sounds Genitourinary: No suprapubic tenderness Musculoskeletal: Normal range of motion. No midline thoracic, lumbar, or cervical tenderness. No step-offs. Skin: No lesions or abrasions. Neurological: Alert, GCS 15 strength and sensation intact in upper and lower extremities bilaterally. MEDICAL DECISION MAKING AND COURSE IN THE ED WITH INTERPRETATION/REVIEW OF DIAGNOSTIC STUDIES: This is a 39-year-old woman with a past medical history of pleurisy and migraines who comes to the emergency department with what appears to be chest wall pain located along the inferior ribs anteriorly and posteriorly without any overlying skin changes who is tachycardiac. Given the patient's history of PE will obtain a EKG. The EKG did not reveal any acute signs of ischemia. At this time we will obtain labs including CBC, CMP, D-dimer to stratify for PE, magnesium, TSH, and urinalysis. Will obtain a 1 view chest x- ray to evaluate for any pneumonia. Will provide the patient with Toradol for pain relief. Twelve-lead EKG interpreted by myself. Sinus tachycardia at a rate of 118beats per minute. Normal axis. LA interval is 150ms. QRS duration is 93ms. ST segments are normal without elevations or depressions. No Q waves present. Hypertrophy not noted. No changes demonstrated from prior EKG dated 09/23/2018. Interpretation: Sinus tachycardia Laboratory: CBC is unremarkable. D-dimer is elevated at 0.83. CMP reveals hypokalemia at 3.0 and mild elevation in creatinine of 1.1 otherwise unremarkable. TSH is normal at 1.11 Urinaylysis was a clean catch and was negative for leukocyte esterase, negative for nitrites, and trace for blood. RBC count was 0. Interpretation: Negative The radiological images were viewed by myself along with reading the report from the radiologist. Chest x-ray does not reveal any acute cardiopulmonary process. No evidence of widened mediastinum. After D-dimer was elevated I did discuss with patient that I would like to obtain a CT PE. She was amenable to this plan. At this time she reported that her pain had significantly improved. I also provide the patient with potassium supplementation by mouth. The radiological images were viewed by myself along with reading the report from the radiologist. CT PE reveals no evidence of pulmonary embolism with trace bilateral pleural effusions and groundglass opacities greatest at the left upper lobe suspicious for viral pneumonia. After labs and imaging I did discuss the results with the patient. At this time the patient's vital signs had improved and the patient was saturating well on room air, was speaking in full sentences and appeared to be in no distress. Although the patient does have pleural effusion she does have a history of pleural effusions, unknown cause. At this time although there is suggestion of viral pneumonia I do believe this is secondary to chest wall pain versus costochondritis. I do not believe any specific treatment is indicated therefore we will treat her symptomatically. I discussed with her that she I would be providing her with Robaxin and she could use Tylenol and Motrin at home. She is to return for new worsening symptoms such as shortness of breath, cough, fever, or worsening chest pain. She is to follow-up with her primary care physician. She was amenable to discharge at this time and had no further questions DISPOSITION: The patient was discharged home in stable condition. The patient will follow up with PCP within 1 CONDITION: Fair PROCEDURES: None FINAL IMPRESSION(S)/DIAGNOSES: 1. Acute chest wall pain likely secondary to viral pneumonia 2. Pleural effusion Maverick Phillips M.D. lower ribs Pain Score (Numeric/FACES): 8 - Related Data Allergies Allergy/AdvReac Type Severity Reaction Status Date / Time animal dander Allergy Shortness Verified 08/29/20 22:15 of Breath promethazine Allergy Anxiety Verified 08/29/20 22:15 triamcinolone [From Kenalog] Allergy Other Verified 08/29/20 22:15 dust Allergy Shortness Uncoded 04/09/19 19:53 of Breath Home Meds: Home Meds EPINEPHrine [Epipen] 1 injection SUBCUT ASDIRECTED PRN 09/20/18 [History] Amitriptyline [Elavil] 10 mg PO DAILY 08/29/20 [History] Rizatriptan Benzoate [Rizatriptan] 5 mg PO DAILY PRN 08/29/20 [History] methocarbamoL [Robaxin] 1,000 mg PO TID #21 tab 08/30/20 [Rx] Past Medical History HEENT History: Reports: None Respiratory History: Reports: PE Other Respiratory History: PE during in 2004 Gastrointestinal History: Reports: Celiac Disease Genitourinary History: Reports: None 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: Endometriosis, Polycystic Ovaries, Musculoskeletal History: Reports: Neck Pain, Chronic Neurological History: Reports: Migraines Psychiatric History: Reports: ADHD Endocrine/Metabolic History: Reports: None Hematologic History: Reports: None Immunologic History: Reports: None Dermatologic History: Reports: Eczema 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 Social & Family History - Family History Family Medical History: Noncontributory - Caffeine Use Caffeine Use: Reports: Coffee Caffeine Use Comment: occasionally - Recreational Drug Use Recreational Drug Use: No - Living Situation & Occupation Living situation: Reports: , with Spouse Occupation: Employed ED ROS GENERAL - Review of Systems Review Of Systems: See Below ED EXAM, GENERAL - Physical Exam Exam: See Below Course - Vital Signs Last Recorded V/S: Last Vital Signs Temp 36.6 C 08/30/20 01:45 Pulse 90 08/30/20 01:45 Resp 17 08/30/20 01:45 BP 123/83 08/30/20 01:45 Pulse Ox 97 08/30/20 01:45 - Orders/Labs/Meds Labs: Laboratory Tests 08/29/20 08/29/20 08/29/20 Range/Units 23:05 23:13 23:13 WBC 6.16 (4.0-11.0) K/uL RBC 4.66 (4.30-5.90) M/uL Hgb 13.9 (12.0-16.0) g/dL Hct 40.5 (36.0-46.0) % MCV 86.9 (80.0-98.0) fL MCH 29.8 (27.0-32.0) pg MCHC 34.3 (31.0-37.0) g/dL RDW Std Deviation 40.4 (28.0-62.0) fl RDW Coeff of Gifty 13 (11.0-15.0) % Plt Count 174 (150-400) K/uL MPV 9.70 (7.40-12.00) fL Neut % (Auto) 65.1 (48.0-80.0) % Lymph % (Auto) 25.0 (16.0-40.0) % [place] % (Auto) 8.4 (0.0-15.0) % Eos % (Auto) 1.3 (0.0-7.0) % Baso % (Auto) 0.2 (0.0-1.5) % Neut # (Auto) 4.0 (1.4-5.7) K/uL Lymph # (Auto) 1.5 (0.6-2.4) K/uL [place] # (Auto) 0.5 (0.0-0.8) K/uL Eos # (Auto) 0.1 (0.0-0.7) K/uL Baso # (Auto) 0.0 (0.0-0.1) K/uL Nucleated RBC % 0.0 /100WBC Nucleated RBCs # 0 K/uL D-Dimer, Quantitative 0.83 H (0.0-0.50) mg/L FEU Sodium (136-145) mmol/L Potassium (3.5-5.1) mmol/L Chloride (98-107) mmol/L Carbon Dioxide (21.0-32.0) mmol/L BUN (7.0-18.0) mg/dL Creatinine (0.6-1.0) mg/dL Est Cr Clr Drug Dosing mL/min Estimated GFR (MDRD) ml/min Glucose (74-106) mg/dL Calcium (8.5-10.1) mg/dL Magnesium (1.8-2.4) mg/dL Total Bilirubin (0.2-1.0) mg/dL AST (15-37) IU/L ALT (14-63) IU/L Alkaline Phosphatase (46-116) U/L Total Protein (6.4-8.2) g/dL Albumin (3.4-5.0) g/dL Globulin (2.6-4.0) g/dL Albumin/Globulin Ratio (0.9-1.6) TSH 3rd Generation (0.36-3.74) uIU/mL Urine Color YELLOW Urine Appearance CLEAR Urine pH 6.0 (5.0-8.0) Ur Specific Strat[place] 1.015 (1.001-1.035) Urine Protein NEGATIVE (NEGATIVE) mg/dL Urine Glucose (UA) NEGATIVE (NEGATIVE) mg/dL Urine Ketones NEGATIVE (NEGATIVE) mg/dL Urine Occult Blood TRACE-INTACT H (NEGATIVE) Urine Nitrite NEGATIVE (NEGATIVE) Urine Bilirubin NEGATIVE (NEGATIVE) Urine Urobilinogen 0.2 (<2.0) EU/dL Ur Leukocyte Esterase NEGATIVE (NEGATIVE) Urine RBC NONE SEEN (0-2/HPF) Urine WBC 0-1 (0-5/HPF) Ur Epithelial Cells FEW (NONE-FEW) Urine Bacteria 1+ H (NEGATIVE) Urine Mucus LIGHT (NONE-MOD) 08/29/20 Range/Units 23:13 WBC (4.0-11.0) K/uL RBC (4.30-5.90) M/uL Hgb (12.0-16.0) g/dL Hct (36.0-46.0) % MCV (80.0-98.0) fL MCH (27.0-32.0) pg MCHC (31.0-37.0) g/dL RDW Std Deviation (28.0-62.0) fl RDW Coeff of Gifty (11.0-15.0) % Plt Count (150-400) K/uL MPV (7.40-12.00) fL Neut % (Auto) (48.0-80.0) % Lymph % (Auto) (16.0-40.0) % [place] % (Auto) (0.0-15.0) % Eos % (Auto) (0.0-7.0) % Baso % (Auto) (0.0-1.5) % Neut # (Auto) (1.4-5.7) K/uL Lymph # (Auto) (0.6-2.4) K/uL [place] # (Auto) (0.0-0.8) K/uL Eos # (Auto) (0.0-0.7) K/uL Baso # (Auto) (0.0-0.1) K/uL Nucleated RBC % /100WBC Nucleated RBCs # K/uL D-Dimer, Quantitative (0.0-0.50) mg/L FEU Sodium 138 (136-145) mmol/L Potassium 3.0 L (3.5-5.1) mmol/L Chloride 103 (98-107) mmol/L Carbon Dioxide 23.6 (21.0-32.0) mmol/L BUN 8 (7.0-18.0) mg/dL Creatinine 1.1 H (0.6-1.0) mg/dL Est Cr Clr Drug Dosing 65.45 mL/min Estimated GFR (MDRD) 54.7 ml/min Glucose 97 (74-106) mg/dL Calcium 8.6 (8.5-10.1) mg/dL Magnesium 1.8 (1.8-2.4) mg/dL Total Bilirubin 0.4 (0.2-1.0) mg/dL AST 12 L (15-37) IU/L ALT 17 (14-63) IU/L Alkaline Phosphatase 102 (46-116) U/L Total Protein 7.5 (6.4-8.2) g/dL Albumin 3.8 (3.4-5.0) g/dL Globulin 3.7 (2.6-4.0) g/dL Albumin/Globulin Ratio 1.0 (0.9-1.6) TSH 3rd Generation 1.11 (0.36-3.74) uIU/mL Urine Color Urine Appearance Urine pH (5.0-8.0) Ur Specific Strat[place] (1.001-1.035) Urine Protein (NEGATIVE) mg/dL Urine Glucose (UA) (NEGATIVE) mg/dL Urine Ketones (NEGATIVE) mg/dL Urine Occult Blood (NEGATIVE) Urine Nitrite (NEGATIVE) Urine Bilirubin (NEGATIVE) Urine Urobilinogen (<2.0) EU/dL Ur Leukocyte Esterase (NEGATIVE) Urine RBC (0-2/HPF) Urine WBC (0-5/HPF) Ur Epithelial Cells (NONE-FEW) Urine Bacteria (NEGATIVE) Urine Mucus (NONE-MOD) Meds: Medications Discontinued Medications Generic Name Dose Route Start Last Admin Trade Name Steffanie PRN Reason Stop Dose Admin Iopamidol 75 ml 08/30/20 01:00 08/30/20 01:01 Isovue-370 (76%) IVPUSH 08/30/20 01:01 75 ml ONETIME STA Administration Ketorolac Tromethamine 15 mg 08/29/20 22:44 08/29/20 23:13 Toradol IM 08/29/20 22:45 15 mg ONETIME ONE Administration Methocarbamol 1,500 mg 08/29/20 22:44 Methocarbamol PO 08/29/20 22:45 STAT STA Potassium Chloride 40 meq 08/30/20 00:48 Potassium Chloride Solution PO 08/30/20 00:49 ONETIME ONE Departure - Departure Time of Disposition: 01:27 Disposition: Home, Self-Care 01 Condition: Fair Clinical Impression: Hypokalemia, Muscle spasm - Discharge Information *PRESCRIPTION DRUG MONITORING PROGRAM REVIEWED*: No *COPY OF PRESCRIPTION DRUG MONITORING REPORT IN PATIENT VASILIY: No Prescriptions: methocarbamoL [Robaxin] 1,000 mg PO TID #21 tab Instructions: Muscle Cramps and Spasms, [id number] Referrals: An Abebe MD [Primary Care Provider] - Forms: ED Department Discharge Additional Instructions: The patient is informed of any results of their evaluation and diagnostic workup and all questions are answered. They are given discharge instructions and return precautions. The patient is stable for discharge. The patient states they understand and agree with the plan and that they will return if their symptoms get worse or if they have any new concerns. The following information is given to patients seen in the emergency department who are being discharged to home. This information is to outline your options for follow-up care. We provide all patients seen in our emergency department with a follow-up referral. The need for follow-up, as well as the timing and circumstances, are variable depending upon the specifics of your emergency department visit. If you don't have a primary care physician on staff, we will provide you with a referral. We always advise you to contact your personal physician following an emergency department visit to inform them of the circumstance of the visit and for follow-up with them and/or the need for any referrals to a consulting sp ecialist. The emergency department will also refer you to a specialist when appropriate. This referral assures that you have the opportunity for follow-up care with a specialist. All of these measure are taken in an effort to provide you with optimal care, which includes your follow-up. Under all circumstances we always encourage you to contact your private physician who remains a resource for coordinating your care. When calling for follow-up care, please make the office aware that this follow-up is from your recent emergency room visit. If for any reason you are refused follow-up, please contact the [facility] Emergency Department at and asked to speak to the emergency department charge nurse. [facility] - Primary Care [address] [place] [phone] [address] [address] Please continue to use Tylenol and Motrin for pain relief and use Robaxin as prescribed for the next 7 days. Return to the emergency department for any new or worsening symptoms. Sepsis Event Note (ED) - Evaluation Sepsis Screening Result: No Definite Risk - Focused Exam Vital Signs: Vital Signs Temp Pulse Resp BP Pulse Ox 08/30/20 01:45 36.6 C 90 17 123/83 97 08/30/20 00:45 84 96 08/29/20 22:17 36.9 C 118 H 18 148/97 H 95
== END 2020-08-30 01:45 | disposition home or self-care (01) ==
LOC: MW.ED 22:07
DX: M62.830 Muscle spasm of back (principal); J90 Pleural effusion, not elsewhere classified; E87.6 Hypokalemia; Z79.899 Other long term (current) drug therapy; Z91.048 Other nonmedicinal substance allergy status; Z88.8 Allergy status to other drugs, medicaments and biological substances
CPT/HCPCS: 36415; 71045; 71275; 80053; 81001; 83735; 84443; 85025; 85379; 93005; 96372; 99284; J1885; Q9967; 93010; 99283

== ENCOUNTER 2020-08-31 15:06 | Emergency (ER) | payer BC ==
[2020-08-31] MEDS ORDERED: methylPREDNISolone Sodium Succinate 125 MG/2 ML SDV IM ONE (15:47)
[2020-08-31] MEDS ORDERED: diphenhydrAMINE 25 MG Cap PO ONE (15:47)
--- NOTE | 2020-08-31 15:51 | EDM.PDOC ---
ED HPI GENERAL MEDICAL PROBLEM - General Chief Complaint: Allergic Reaction Stated Complaint: ALLERGIC REACTION TO MEDS Time Seen by Provider: 08/31/20 15:41 Source of Information: Reports: Patient History Limitations: Reports: No Limitations - History of Present Illness INITIAL COMMENTS - FREE TEXT/NARRATIVE: HISTORY AND PHYSICAL: History of present illness: Patient is a 39-year-old female who presents to the ED today with concern of an allergic reaction to Robaxin medication. Patient states that she was given this muscle relaxant because she was having spasm of her right sided rib area and was given this medication a few days ago in the emergency room. Patient states she first took the medication last night and immediately felt a warming sensation of her face along with a headache which lasted only a brief second yesterday. Patient states she has a history of migraines so getting a headache is not unusual for her. Patient states that she took the medication again this afternoon and immediately had a warming sensation of her face again along with a headache and states she had the symptoms of "pre-anaphylaxis." Patient states she has had anaphylaxis prior due to allergy shots and also had the warm/flushing sensation when she had anaphylaxis prior. Patient states she is not having any current symptoms at this time in the ED but is concerned as she has had anaphylaxis prior. Denies lip edema, tongue edema, or oropharyngeal edema. Patient denies fever, chills, chest pain, shortness of breath, or cough. Denies neck stiff ness, change in vision, syncope, or near syncope. Denies nausea, vomiting, abdominal pain, diarrhea, constipation, or dysuria. Has not noted any blood in urine or stool. Patient has been eating and drinking appropriately. Review of systems: As per history of present illness and below otherwise all systems reviewed and negative. Past medical history: As per history of present illness and as reviewed below otherwise noncontri butory. Surgical history: As per history of present illness and as reviewed below otherwise noncontributory. Social history: See social history for further information Family history: As per history of present illness and as reviewed below otherwise noncontributory. Physical exam: General: Patient is alert, oriented, and in no acute distress. Patient sitting comfortably on exam table. HEENT: No lip edema, tongue edema, or oropharyngeal edema. No stridor. Otherwise, Atraumatic, normocephalic, pupils equal and reactive bilaterally, negative for conjunctival pallor or scleral icterus, mucous membranes moist, TMs normal bilaterally, throat clear, neck supple, nontender, trachea midline. No drooling or trismus noted. No meningeal signs. No hot potato voice noted. Lungs: Clear to auscultation, breath sounds equal bilaterally, chest nontender. Heart: S1S2, regular rate and rhythm without overt murmur Abdomen: Soft, nondistended, nontender. Negative for masses or hepatosplenomegaly. Negative for costovertebral tenderness. Pelvis: Stable nontender. Genitourinary: Deferred. Rectal: Deferred. Skin: Intact, warm, dry. No lesions or rashes noted. Extremities: Atraumatic, negative for cords or calf pain. Neurovascular unremarkable. Neuro: Awake, alert, oriented. Cranial nerves II through XII unremarkable. Cerebellum unremarkable. Motor and sensory unremarkable throughout. Exam nonfo krishna. Notes: Patient has an EpiPen available to her at home. Patient was monitored in the ED for an additional 1.4 hours without returning of any symptoms and continues to not have any evidence of lip edema, tongue edema, oropharyngeal edema or stridor. Discussed with patient to stop the Robaxin medication and to no longer take this medication and has been added to her allergy/adverse reaction list. Discussed the importance for follow up with a primary care provider. Voices understanding and is agreeable to plan of care. Denies any further questions or concerns at this time. Diagnostics: None Therapeutics: Benadryl, Solumedrol Prescription: None Impression: Medication adverse reaction Plan: 1. Do not take Robaxin medication any longer and has been added to your allergy list. 2. While symptomatic continue to routinely take Benadryl 3. Carry your Epi-Pen with you at all times. Use in the case of an emergency and call 911 and/or present to the ER. 4. Please follow up with your Primary care doctor as discussed. Return to the ED as needed and as discussed. Definitive disposition and diagnosis as appropriate pending reevaluation and review of above. headache Pain Score (Numeric/FACES): 9 - Related Data Allergies Allergy/AdvReac Type Severity Reaction Status Date / Time methocarbamol [From Robaxin] Allergy Unknown Other Verified 08/31/20 15:50 animal dander Allergy Shortness Verified 08/31/20 15:18 of Breath promethazine Allergy Anxiety Verified 08/31/20 15:18 triamcinolone [From Kenalog] Allergy Other Verified 08/31/20 15:18 dust Allergy Shortness Uncoded 08/31/20 15:18 of Breath Home Meds: Home Meds EPINEPHrine [Epipen] 1 injection SUBCUT ASDIRECTED PRN 09/20/18 [History] Amitriptyline [Elavil] 10 mg PO DAILY 08/29/20 [History] Rizatriptan Benzoate [Rizatriptan] 5 mg PO DAILY PRN 08/29/20 [History] Past Medical History HEENT History: Reports: None Respiratory History: Reports: PE Other Respiratory History: PE during in 2004 Gastrointestinal History: Reports: Celiac Disease Genitourinary History: Reports: None [employer] History: Reports: Endometriosis, Polycystic Ovaries, Musculoskeletal History: Reports: Neck Pain, Chronic Neurological History: Reports: Migraines Psychiatric History: Reports: ADHD Endocrine/Metabolic History: Reports: None Hematologic History: Reports: None Immunologic History: Reports: None Dermatologic History: Reports: Eczema 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 Social & Family History - Family History Family Medical History: Noncontributory - Tobacco Use Tobacco Use Status *Q: Never Tobacco User - Caffeine Use Caffeine Use: Reports: None Caffeine Use Comment: occasionally - Recreational Drug Use Recreational Drug Use: No - Living Situation & Occupation Living situation: Reports: , with Spouse Occupation: Employed ED ROS ALLERGIC REACTION - Review of Systems Review Of Systems: Comprehensive ROS is negative, except as noted in HPI. ED EXAM GENERAL NO PERIP PULSE - Physical Exam Exam: See Below (see dictation) Course - Vital Signs Last Recorded V/S: Last Vital Signs Temp 98.5 F 08/31/20 15:19 Pulse 81 08/31/20 17:10 Resp 16 08/31/20 17:10 BP 134/87 08/31/20 17:10 Pulse Ox 95 08/31/20 17:10 - Orders/Labs/Meds Meds: Medications Discontinued Medications Generic Name Dose Route Start Last Admin Trade Name Steffanie PRN Reason Stop Dose Admin Diphenhydramine HCl 25 mg 08/31/20 15:47 08/31/20 16:00 Benadryl PO 08/31/20 15:48 25 mg ONETIME ONE Administration Methylprednisolone Sodium Succinate 125 mg 08/31/20 15:47 08/31/20 16:03 Solu-Medrol IM 08/31/20 15:48 125 mg ONETIME ONE Administration Departure - Departure Time of Disposition: 16:52 Disposition: Home, Self-Care 01 Clinical Impression: Medication adverse effect Qualifiers: Encounter type: initial encounter Qualified Code(s): T50.905A - Adverse effect of unspecified drugs, medicaments and biological substances, initial encounter - Discharge Information Instructions: Drug Allergy, [id number] Referrals: An Abebe MD [Primary Care Provider] - Forms: ED Department Discharge Additional Instructions: The following information is given to patients seen in the emergency department who are being discharged to home. This information is to outline your options for follow-up care. We provide all patients seen in our emergency department with a follow-up referral. The need for follow-up, as well as the timing and circumstances, are variable depending upon the specifics of your emergency department visit. If you don't have a primary care physician on staff, we will provide you with a referral. We always advise you to contact your personal physician following an emergency department visit to inform them of the circumstance of the visit and for follow-up with them and/or the need for any referrals to a consulting specialist. The emergency department will also refer you to a specialist when appropriate. This referral assures that you have the opportunity for follow-up care with a specialist. All of these measure are taken in an effort to provide you with optimal care, which includes your follow-up. Under all circumstances we always encourage you to contact your private physician who remains a resource for coordinating your care. When calling for follow-up care, please make the office aware that this follow-up is from your recent emergency room visit. If for any reason you are refused follow-up, please contact the [facility] Emergency Department at and asked to speak to the emergency department charge nurse. [facility] [address] [place] [address] [facility] [address] [place] [address] 1. Do not take Robaxin medication any longer and has been added to your allergy list. 2. While symptomatic continue to routinely take Benadryl 3. Carry your Epi-Pen with you at all times. Use in the case of an emergency and call 911 and/or present to the ER. 4. Please follow up with your Primary care doctor as discussed. Return to the ED as needed and as discussed. Sepsis Event Note (ED) - Evaluation Sepsis Screening Result: No Definite Risk - Focused Exam Vital Signs: Vital Signs Temp Pulse Resp BP Pulse Ox 08/31/20 17:10 81 16 134/87 95 08/31/20 15:19 98.5 F 90 24 H 149/94 H 98
== END 2020-08-31 17:11 | disposition home or self-care (01) ==
LOC: MW.ED 15:06
DX: M62.838 Other muscle spasm (principal); T42.8X5A Adverse effect of antiparkinsonism drugs and other central muscle-tone depressants, initial encounter; Z90.49 Acquired absence of other specified parts of digestive tract; Z90.710 Acquired absence of both cervix and uterus; Z98.51 Tubal ligation status; Z91.09 Other allergy status, other than to drugs and biological substances; Z88.8 Allergy status to other drugs, medicaments and biological substances; Z79.899 Other long term (current) drug therapy
CPT/HCPCS: 96372; 99284; A9270; J2930; 99282